=== PATIENT | female | born 1990 | race Two or more races ===

== ENCOUNTER 2024-06-28 16:59 | Emergency (ER) | payer OTHER ==
[~2024-06-28] VITALS: Ht 152.4 cm; Wt 68.9 kg
[2024-06-28] MEDS ORDERED: LISINOPRIL10 MG PO (17:15)
[2024-06-28] MEDS ORDERED: KETOROLAC TROMETHAMINE 60 MG VIAL IM ONE (17:30)
[2024-06-28] MEDS ORDERED: CEFTRIAXONE SODIUM 1,000 MG VIAL IM ONE (17:30)
[2024-06-28] MEDS ORDERED: LIDOCAINE HCL 1% 10ML VIAL PERCUT ONE (17:30)
[2024-06-28] MEDS ORDERED: TETANUS & DIPHTHERIA TOX,ADULT 0.5 ML VIAL IM ONE (17:45)
[2024-06-28] MEDS ORDERED: CEPHALEXIN750 MG PO (18:06)
[2024-06-28] MEDS ORDERED: PEPCID AC20 MG PO (18:06)
== END 2024-06-28 18:58 | disposition home or self-care (01) ==
LOC: ER 17:01
DX: S61.228A Laceration with foreign body of other finger without damage to nail, initial encounter (principal); W25.XXXA Contact with sharp glass, initial encounter; Y93.89 Activity, other specified; Y92.010 Kitchen of single-family (private) house as the place of occurrence of the external cause